=== PATIENT | female | born 1985 | race Caucasian/White ===

== ENCOUNTER 2016-11-11 15:28 | Emergency (ER) | payer SELFPAY ==
[~2016-11-11] VITALS: Ht 157.5 cm; Wt 52.7 kg
[2016-11-11 15:28] VITALS: BP 138/64; PULSE 78; RESP 14; O2SAT 100
--- NOTE | 2016-11-11 16:44 | DRSVH ---
PROCEDURE: X-RAY RIGHT FOREARM, TWO VIEWS ([id number]) INDICATIONS: 31 year-old female with right forearm pain after fall. TECHNIQUE: 2 views of the forearm were acquired. COMPARISON: None. FINDINGS: Bones: No fractures or dislocations. No suspicious bony lesions. Soft tissues: There is anterior fat pad elevation involving the right elbow joint. No suspicious sof t tissue calcifications or masses. IMPRESSION: 1. No acute bony injuries of the right forearm. 2. Right elbow joint effusion, suspicious for occult intra-articular fracture. Consider further evalu ation with dedicated right elbow radiographs. Dictated by: Rohan Anderson M.D. on 11/11/2016 at 16:40 Approved by: Rohan Anderson M.D. on 11/11/2016 at 16:42
--- NOTE | 2016-11-11 16:45 | DRSVH ---
PROCEDURE: X-RAY RIGHT WRIST COMPLETE, MINIMUM THREE VIEWS ([id number]) INDICATIONS: 31 year-old female with right wrist pain after 7 foot fall from ladder. TECHNIQUE: 4 views of the wrist were acquired. COMPARISON: None. FINDINGS: Bones: No fractures or dislocations. No suspicious bony lesions. Scaphoid view: Scaphoid appears intact. Soft tissues: No suspicious soft tissue calcifications. IMPRESSION: No acute bony injuries of the right wrist. Dictated by: Rohan Anderson M.D. on 11/11/2016 at 16:43 Approved by: Rohan Anderson M.D. on 11/11/2016 at 16:43
--- NOTE | 2016-11-11 16:51 | ED.REPORT ---
HPI-Trauma Minor / Fall Date of Service Nov 11, 2016 ED Provider: oCrona Curtis MD Pt is a 31 year old female presenting to the ED after falling off a 7 foot ladder just prior to arrival. Pt states that she hit the back of her head as she fell, and had numbness in her arms lasting for a few minutes. She complains of right arm pain, pain in the back of her head, and slight neck pain. Denies weakness, numbness or tingling in any extremities. Nursing Notes Stated Complaint: FELL OFF A LADDER Chief Complaint: Extremity Trauma Nursing Notes Reviewed: Yes Allergies: Coded Allergies: No Known Allergies (Unverified , 11/11/16) Scheduled PRN Hydrocodone-Acetaminophen 5-325 mg (Hydrocodone-Acetaminophen 5-325 mg) 1 Each Tablet 1 TABLET PO Q4H PRN PRN For Pain General Time Seen by MD: 16:50 Chief Complaint Fall Hx Obtained From: Patient Arrived By: Walk-in Onset Occurred: Just prior to arrival Symptom Duration: Since onset Caused by: Fall from height... (6-10 feet) Location: Arm right Elbow right Head Neck Quality: Painful Severity: Current: Moderate Severity: Maximum: Severe Recent Healthcare: No recent doctor visit, No recent hospitalization Similar Sx Previous: No Past Medical History Past Medical History healthy Past Surgical History denies Smoking History Unknown if Ever Smoker Ambulatory Status Independent Review of Systems Musculoskeletal: Reports: Extremity pain, Joint pain, Denies: Neck pain Neurologic: Reports: Headache, Numbness, Denies: Focal weakness Complete sys rev & neg: except as marked. Physical Exam Initial Vital Signs Vital Signs (First) Date Time Temp Pulse Resp B/P Pulse Ox O2 Delivery O2 Flow Rate FiO2 11/11/16 15:28 36.6 78 14 138/64 100 Room Air Initial VS: Reviewed Head / Eyes: Atraumatic, Normocephalic, PERRL ENT: Mucous membranes moist, Conjunctiva normal, No scleral icterus Respiratory: Breath sounds normal, Clear to auscultation, No respiratory distress Cardiovascular: Regular rate & rhythm, Heart sounds normal, Intact distal pulses Abdomen / GI: Soft, Non-tender, No guarding, No rebound, No distention Skin: Warm, Dry, No cyanosis Neurologic: Alert, Oriented, Nonfocal Psychiatric: Mood/affect normal, Behavior normal, Normal thought content General/Constitutional: Awake, Alert Upper Extremity / MS: No deformity, Neurologic intact, Vascular intact Right elbow pain Skin: Warm, Dry Superficial abrasion posterior scalp. Neurologic: Oriented X3, Speech NL, No motor deficits, No sensory deficits, CN II - XII intact, Cerebellar NL Interpretation & Diagnostics Interpretation & Diagnostics: C SPINE MRI: IMPRESSION: The MR imaging shows no edema within the marrow space, or ligaments of the cervical spine. There is only a mild degree of degenerative disc disease with slight disc bulging as noted above, but without significant spinal or foraminal stenosis. A cord contusion/hematoma is not found. A definite source of current symptomatology is not found. Dictated by: Brad Antony M.D. on 11/11/2016 at 20:07 Approved by: Brad Antony M.D. on 11/11/2016 at 20:15 X-Ray Interpretation Xray Interpretation: XRAY RIGHT WRIST: IMPRESSION: No acute bony injuries of the right wrist. Dictated by: Rohan Anderson M.D. on 11/11/2016 at 16:43 XRAY RIGHT FOREARM: IMPRESSION: 1. No acute bony injuries of the right forearm. 2. Right elbow joint effusion, suspicious for occult intra-articular fracture. Consider further evaluation with dedicated right elbow radiographs. Dictated by: Rohan Anderson M.D. on 11/11/2016 at 16:40 Interpretation / Wet Read by: Interpret - Radiologist CT Head Interpretation IMPRESSION: No trauma found. Dictated by: Brad Antony M.D. on 11/11/2016 at 17:45 Study: Head CT no contrast Interpretation / Wet Read by: Interpret - Radiologist CT C-Spine Interpretation IMPRESSION: No trauma found. Dictated by: Brad Antony M.D. on 11/11/2016 at 17:51 Procedures Splint Application - Fx Mgt Time: 21:26 Procedure Performed by: ED resident Precise Anatomic Location: elbow Type of Immobilization: Sugar tong Definitive Fracture Care: Pain control, Splint Post-Procedure / Complications: Cap refill normal, Post splint vascular nl, Post splint neuro nl, Condition improved, Tolerated procedure well, Patient stable Re-Eval/Medical Decision Med Decision/Clinical Course 31 yo f s/p 7 foot fall off ladder onto R shoulder, head. No LOC. Numbness bilateral upper extremities briefly, resolved prior to arrival. No neuro deficits. CT head, C-spine no acute pathology. Xray R elbow possible occult fx - splinted. Signed out to Dr Hill pending MR c-spine. Regarding elbow xray will f/u ortho 1 week - call for appointment tomorrow. Return precautions given. Re-Evaluation/Progress #1: Time of Eval: 17:36 Patient Status: Condition improved Re-Evaluation/Progress Note: Updated on x ray results. Re-Evaluation/Progress #2: Time of Eval: 19:30 Re-Evaluation/Progress Note: Given that the patient was asymptomatic (no abdominal pain) prior to MRI, labs were canceled by Dr. Hill. Re-Evaluation/Progress #3: Time of Eval: 20:30 Re-Evaluation/Progress Note: Patient re-examined by Dr. Hill after complaining of abdominal pain. When walking into room, patient was sleeping. Abdomen is soft and non tender. Patient denies vomiting but reports that she ate beef jerky an hour ago. She also reports that she has experienced this pain before that also resolved. Counseled Regarding: Diagnosis, Lab results, Need for follow-up, When/why to return to ED Discharge & Departure Impression: Primary Impression: Elbow fracture, right Encounter type: initial encounter Fracture type: closed Qualified Code: S42.401A - Unspecified fracture of lower end of right humerus, initial encounter for closed fracture Additional Impression: Head trauma Encounter type: initial encounter Qualified Code: S09.90XA - Unspecified injury of head, initial encounter Disposition: Home Discharge Condition All VS Reviewed: Yes Condition: Improved Patient Instructions: Concussion (ED), Elbow Fracture (ED), Splint Care (ED) Additional Instructions: Your x ray showed that you fractured your elbow. The CT scans and MRI of your brain and neck looked normal. Follow up with your primary care doctor and orthopedics in the next few days. Return to the ER if you develop any weakness, numbness, tingling, nausea, vomiting, vision changes, speech changes, or any other new or worsening symptoms. Referrals: [facility] Aris Hdz MD Attestation Portions of this note were transcribed by Cecile Judge. I, Dr. Curtis personally performed the history, physical exam and medical decision-making; I reviewed and confirmed the accuracy of the information in the transcribed note. Signed by: Brandon Rosa, 11/11/2016. copies to: [facility]; Aris Hdz MD, Ben M MD Nov 11, 2016 16:51 CECILE JUDGE Nov 11, 2016 17:02 Audrey Mandujano Nov 11, 2016 20:35
--- NOTE | 2016-11-11 17:47 | DRSVH ---
PROCEDURE: CT BRAIN WITHOUT CONTRAST ([id number]) INDICATIONS: trauma TECHNIQUE: Noncontrast 4.5 mm thick angled axial sections acquired from the foramen magnum to the vertex, with c oronal reformats. COMPARISON: None. FINDINGS: Image quality: Excellent. CSF spaces: Basal cisterns are patent. No extra-axial fluid collections. Ventricles are normal in size and shape. Brain: No midline shift. No intracranial masses or hemorrhage. Mcqueen-white matter interface is norm al. Skull and face: Calvarium and visualized facial bones are intact, without suspicious lesions. Sinuses: Visualized sinuses and mastoids are clear. IMPRESSION: No trauma found. Dictated by: Brad Antony M.D. on 11/11/2016 at 17:45 Approved by: Brad Antony M.D. on 11/11/2016 at 17:45
--- NOTE | 2016-11-11 17:53 | DRSVH ---
PROCEDURE: CT CERVICAL SPINE WITHOUT CONTRAST ([id number]) INDICATIONS: trauma TECHNIQUE: Noncontrast 3 mm thick sections acquired from the skull base to the T4 level. Sagittal and coronal r eformats were then constructed. For radiation dose reduction, the following was used: automated exp osure control, adjustment of mA and/or kV according to patient size. COMPARISON: None. FINDINGS: Image quality: Excellent. Bones: No fractures or dislocations. Visualized superior ribs are intact. Soft tissues: Prevertebral soft tissues are normal in thickness. No paravertebral hematomas. No ap ical pneumothoraces. IMPRESSION: No trauma found. Dictated by: Brad Antony M.D. on 11/11/2016 at 17:51 Approved by: Brad Antony M.D. on 11/11/2016 at 17:52
[2016-11-11] MEDS ORDERED: Ondansetron 2 mg/mL 2 mL Inj ONE (18:33)
[2016-11-11 18:56] VITALS: BP 137/62; PULSE 72; RESP 16; O2SAT 98
[2016-11-11] MEDS ORDERED: HYDROmorphone 1 mg/mL Inj IVPUSH ONE (19:10)
[2016-11-11] MEDS ORDERED: HYDR-4003 PO (19:19)
[2016-11-11] MEDS ORDERED: HYDROmorphone 0.5 mg/0.5 mL iSecure Syringe IVPUSH PRN (19:25)
[2016-11-11 19:45] VITALS: BP 132/71; PULSE 103; O2SAT 100
--- NOTE | 2016-11-11 20:16 | DRSVH ---
PROCEDURE: MRI CERVICAL SPINE WITHOUT CONTRAST ([id number]) INDICATIONS: neck trauma bilateral upper extremity numbness TECHNIQUE: Noncontrast sagittal T1 spin echo and T2 fast spin echo, sagittal STIR, foraminal oblique sagittal T2 fast spin echo, and axial gradient echo or T2 fast spin echo through the cervical spine. COMPARISON: [facility], CT, CT BRAIN WO CON, 11/11/2016, 17:14. [facility], CT, CT CERVICAL SPINE WO CON, 11/11/2016, 17:14. FINDINGS: Image quality: Excellent. Alignment and Curvature: There is normal bony alignment. Bone Marrow: Marrow demonstrates normal overall signal. There is a mild degree of degenerative disc disease with posterior disc bulging at C5-6, but this does not produce spinal stenosis. CSF is obregon nt both anterior and posterior to the cord. Spinal Cord: Visualized spinal cord has normal size and signal. No cerebellar tonsillar herniation. Paraspinous Soft Tissues: No paravertebral masses. Prevertebral soft tissues are normal in thicknes s. C2-C3: Normal appearance. C3-C4: Normal appearance. C4-C5: Normal appearance except for a mild degree of degenerative disc height reduction and disc mor iccation. C5-C6: Mild degenerative disc height reduction and disc desiccation with a slight posterior disc bulg e. No significant spinal or foraminal stenosis.. C6-C7: Slight degenerative disc height reduction and disc desiccation, minimal posterior disc bulge. C7-T1: Normal appearance. IMPRESSION: The MR imaging shows no edema within the marrow space, or ligaments of the cervical spine . There is only a mild degree of degenerative disc disease with slight disc bulging as noted above, but without significant spinal or foraminal stenosis. A cord contusion/hematoma is not found. A def inite source of current symptomatology is not found. Dictated by: Brad Antony M.D. on 11/11/2016 at 20:07 Approved by: Brad Antony M.D. on 11/11/2016 at 20:15
[2016-11-11] MEDS ORDERED: LidocaineVisc 2%:Antacid 1:1 10 mL Syringe PO ONE (20:35)
[2016-11-11 21:10] VITALS: BP 128/68; PULSE 100; RESP 16; O2SAT 99
[2016-11-11 21:48] VITALS: BP 108/64; PULSE 90; RESP 12; O2SAT 99
== END 2016-11-11 21:52 | disposition home or self-care (01) ==
LOC: SED 15:28
DX: S42.401A Unspecified fracture of lower end of right humerus, initial encounter for closed fracture (principal); S09.8XXA Other specified injuries of head, initial encounter; W11.XXXA Fall on and from ladder, initial encounter; Y93.9 Activity, unspecified; Y92.9 Unspecified place or not applicable; Y99.8 Other external cause status
CPT/HCPCS: 29105; 70450; 72125; 72141; 73090; 73110; 96374; 96375; 99285; J1170; J2060; J2270; J2405